=== PATIENT | male | born 1965 | race Caucasian/White ===

== ENCOUNTER 2021-06-30 17:20 | Emergency (ER) | payer MEDICAID, SELFPAY ==
[2021-06-30 18:26] VITALS: BP 212/115; PULSE 88; RESP 18; TEMP 36.6; O2SAT 96; BMI 39.5
--- NOTE | 2021-06-30 18:29 | ECG_ITS ---
Test Reason : DIZZINESS Blood Pressure : / mmHG Vent. Rate : 081 BPM Atrial Rate : 081 BPM P-R Int : 180 ms QRS Dur : 120 ms QT Int : 418 ms P-R-T Axes : 009 008 078 degrees QTc Int : 485 ms Normal sinus rhythm Minimal voltage criteria for LVH, may be normal variant ( [place] product ) Premature ventricular complexes Nonspecific T wave abnormality Abnormal ECG No previous ECGs available Referred By: Generic ED Physician Electronically Signed By:JOY BALLARD
[2021-06-30 18:50] LABS: Hematocrit 43.8 % (42.0-52.0); Hemoglobin 15.4 g/dl (14.0-18.0); Mean Corpuscular HGB Conc 35.2 g/dl (31.0-36.0); Mean Corpuscular Hemoglobin 29.9 pg (27.0-33.0); Platelet Count 194 X10*3/uL (160-400); Red Blood Count 5.15 X10*6/uL (4.60-5.80); Red Cell Distribution Width 12.8 % (11.0-16.0)
[2021-06-30 18:58] LABS: Anion Gap 10 (12-20); Blood Urea Nitrogen 11 mg/dL (9-16); Calcium 9.5 mg/dL (8.4-10.2); Carbon Dioxide 30 mmol/L (22-29); Chloride 102 mmol/L (96-108); Creatinine Clr Calc Pharmacy 115.3; Estimated Glomerular Filt Rate > 60; Glucose Random 127 mg/dL (60-115); Potassium 3.4 mmol/L (3.3-5.1); Sodium 139 mmol/L (135-145)
[2021-06-30 21:26] VITALS: BP 180/112; PULSE 84; RESP 14; TEMP 36.9; O2SAT 96
--- NOTE | 2021-06-30 21:33 | PC.NURSE ---
pt a&ox3, ekg monitor tech applied - sinus rhythm w frequent PVCs, hypertensive. pt c/o dizziness this morning and checked BP - higher than normal. hx hypertension, monitors at home, no medication. denies all other symptoms/pain. pending ED provider.
--- NOTE | 2021-06-30 21:44 | ED_ITS ---
HPI - General Adult General Chief complaint: Recheck/Abnormal Lab/Rx Stated complaint: High BP Time Seen by Provider: 06/30/21 21:44 Source: patient Mode of arrival: ambulatory Limitations: no limitations History of Present Illness HPI narrative: Patient with no significant past medical history no diagnosis of hypertension in the past was feeling little dizzy check his blood pressure was elevated on arrival it was 212/115. Patient denied any headache no chest pain no palpitation no shortness of breath no leg swelling, family history of hypertension present Related Data Previous Rx's Medication Instructions Recorded losartan 50 mg-hydrochlorothiazide 1 tab PO DAILY #30 tab 06/30/21 12.5 mg tablet Allergies Allergy/AdvReac Type Severity Reaction Status Date / Time No Known Allergies Allergy Verified 06/30/21 21:47 Review of Systems Review of Systems: Yes all other systems are reviewed and are negative [facility] Past Medical History Medical History No known health problems Social History Social History Alcohol intake: former Patient Tobacco Use Status: Never used Tobacco Use of substances other than those prescribed or required for medical reasons: No Advance Directives: No Advance Directives Information Provided: No Physical Exam ED Vital Signs: Vital Signs - 24 hr 06/30/21 18:26 06/30/21 21:26 06/30/21 22:12 Temperature 97.9 F 98.5 F Pulse Rate 88 84 77 Respiratory Rate 18 14 18 Blood Pressure 212/115 H 180/112 H 186/111 H Pulse Oximetry 96 96 98 06/30/21 22:46 06/30/21 23:48 Temperature 98.2 F Pulse Rate 75 73 Respiratory Rate 16 12 Blood Pressure 181/107 H 170/99 H Pulse Oximetry 97 97 BMI result Body Mass Index 39.5 Appearance: Alert. Oriented X3. No acute distress. Obese patient Eyes: No pallor or icterus ENT: Pharynx normal. Oral Mucosa moist Neck: Normal inspection. Neck supple. CVS: Normal heart rate and rhythm. Pulses normal. Respiratory: No respiratory distress. Equal air entry bilateral, no wheezing/rales/rhonchi Abdomen: Soft and nontender. Bowel sounds are present, no mass palpable, Skin: Skin warm and dry. Normal skin color. Normal skin turgor. Extremities: No lower extremity edema. No calf tenderness Neuro: Oriented X 3. No motor deficit. No sensory deficit.No cerebellar signs , cranial nerves II-XII intact Medical Decision Making MDM Narrative Medical decision making narrative: Patient with new onset of hypertension with strong family history and high risk. Patient denied any history of sleep apnea. Nonsmoker blood pressure improved after nitro paste losartan and clonidine to 170/99. Will discharge patient home losartan HCTZ advised to follow with PCP next week Lab Data Lab results reviewed: Yes I reviewed the patient's lab results. Result diagrams: 06/30/21 18:38 06/30/21 18:38 Labs: Lab Results 06/30/21 06/30/21 Range/Units 18:38 18:38 WBC 8.0 (4.8-10.8) X10*3/uL RBC 5.15 (4.60-5.80) X10*6/uL Hgb 15.4 (14.0-18.0) g/dl Hct 43.8 (42.0-52.0) % MCV 85.0 (80.0-98.0) fL MCH 29.9 (27.0-33.0) pg MCHC 35.2 (31.0-36.0) g/dl RDW 12.8 (11.0-16.0) % Plt Count 194 (160-400) X10*3/uL MPV 10.0 (9.4-12.4) fL Absolute Nucleated RBC 0.000 (0.0-0.012) X10*3/uL Nucleated RBC % (auto) 0.0 (0.0-0.2) /100WBC Sodium 139 (135-145) mmol/L Potassium 3.4 (3.3-5.1) mmol/L Chloride 102 (96-108) mmol/L Carbon Dioxide 30 H (22-29) mmol/L Anion Gap 10 L (12-20) BUN 11 (9-16) mg/dL Creatinine 1.06 (0.5-1.4) mg/dL Estim Creat Clear Calc 115.3 Estimated GFR > 60 Random Glucose 127 H (60-115) mg/dL Calcium 9.5 (8.4-10.2) mg/dL ECG Data Attestation: I personally reviewed and interpreted this ECG as follows: Interpretation: Normal sinus rhythm heart rate 81 beats per minute normal axis normal intervals LVH nonspecific ST-T changes no acute ischemia Discharge Plan Discharge Clinical Impression: Hypertension Patient Disposition: Home, Self-Care Instructions: Hypertension (ED) Additional Instructions: Reduce weight decrease salt intake Check blood pressure twice daily Should be less than 130/80 Follow with PCP in 1-2 weeks Take blood pressure medicine as prescribed Prescriptions: New losartan-hydrochlorothiazide 50-12.5 mg tablet 1 tab PO DAILY Qty: 30 0RF Interventions: ED Discharge Assessment Last Done: 07/01/21 00:40 Discharge Date/Time: 07/01/21 00:42
[2021-06-30] MEDS: Losartan Potassium 50 MG TABLET PO (22:08)
[2021-06-30] MEDS: Nitroglycerin 2 % Oint 1 GM Packet 1 INCH TRANSDERMA (22:09)
[2021-06-30 22:12] VITALS: BP 186/111; PULSE 77; RESP 18; O2SAT 98
--- NOTE | 2021-06-30 22:12 | PC.NURSE ---
patient a&ox3, moved to room 8, compliance paralegal nsr with pvcs, pt is hypertensive- medicated per order, call wang within reach, will continue to monitor
[2021-06-30 22:46] VITALS: BP 181/107; PULSE 75; RESP 16; O2SAT 97
[2021-06-30] MEDS: cloNIDine HCL 0.2 MG TABLET PO (22:58)
[2021-06-30 23:48] VITALS: BP 170/99; PULSE 73; RESP 12; TEMP 36.8; O2SAT 97
== END 2021-07-01 00:42 | disposition home or self-care (01) ==
PROVIDERS: Emergency Provider Internal Medicine
DX: I10 Essential (primary) hypertension (principal)
CPT/HCPCS: 36415; 80048; 85027; 93005; 99283; 99284